=== PATIENT | male | born 1955 | race Caucasian/White ===

== ENCOUNTER 2024-04-04 06:24 | Day surgery (SDC) | payer MEDICARE, SELFPAY | END 2024-04-04 16:06 | disposition home or self-care (01) | LOC: GI 06:24 | PROVIDERS: ATTENDING PHYSICIAN Internal Medicine | DX: Z12.11 Encounter for screening for malignant neoplasm of colon (principal); K64.8 Other hemorrhoids; K57.30 Diverticulosis of large intestine without perforation or abscess without bleeding; D49.0 Neoplasm of unspecified behavior of digestive system; K62.89 Other specified diseases of anus and rectum; K55.20 Angiodysplasia of colon without hemorrhage; D12.2 Benign neoplasm of ascending colon; D12.3 Benign neoplasm of transverse colon; K63.5 Polyp of colon; K62.1 Rectal polyp | CPT/HCPCS: 45385; 45381; 45380; 88305 ==

== ENCOUNTER 2024-04-26 06:44 | Day surgery (SDC) | payer MEDICARE, SELFPAY ==
[2024-04-26 12:10] VITALS: BP 147/74; BMI 22.9
[2024-04-26 12:29] LABS: Glucose - Point of Care 77 mg/dl (70-99)
[2024-04-26 12:37] VITALS: BMI 22.9
[2024-04-26 16:21] VITALS: BP 107/69
[2024-04-26 16:30] VITALS: BP 109/73
[2024-04-26 16:42] VITALS: BP 119/74
== END 2024-04-26 16:57 | disposition home or self-care (01) ==
LOC: GI 06:44
PROVIDERS: ATTENDING PHYSICIAN Internal Medicine Gastroenterology
DX: D12.2 Benign neoplasm of ascending colon (principal); D12.3 Benign neoplasm of transverse colon; D12.8 Benign neoplasm of rectum; K63.5 Polyp of colon; K64.0 First degree hemorrhoids
CPT/HCPCS: 45390; 45385; 88305; 82962

== ENCOUNTER 2025-02-12 06:29 | Day surgery (SDC) | payer MEDICARE, SELFPAY | END 2025-02-12 09:20 | disposition home or self-care (01) | LOC: GI 06:29 | PROVIDERS: ATTENDING PHYSICIAN Internal Medicine; FAMILY PHYSICIAN Family Medicine | DX: Z12.11 Encounter for screening for malignant neoplasm of colon (principal); K63.5 Polyp of colon; K62.1 Rectal polyp; K57.30 Diverticulosis of large intestine without perforation or abscess without bleeding; K58.9 Irritable bowel syndrome, unspecified; Z86.0101 Personal history of adenomatous and serrated colon polyps; K64.8 Other hemorrhoids | CPT/HCPCS: 45385; 88305 ==